=== PATIENT | female | born 1990 | race Caucasian/White ===

== ENCOUNTER → 2019-05-18 | Outpatient (CLI) | payer OTHER ==
[~2019-05-18] MED LIST: BCP'S; CYCL10 PO; DOXY100 PO; HYDACE5 PO; Mirena1 EACH VG; NORETHTP; OXYACE5T PO; Phentermine HCl15 MG; SERT100 PO; SUDAFED 30 MG; SULTRIDS PO
[2019-05-22 15:07] LABS: HPV 16 Negative (Negative); HPV 18 Negative (Negative); HPV OTHER HR TYPES Negative (Negative)
== END | disposition home or self-care (01) ==
LOC: LAB SHORT 17:23 → LAB 17:23
PROVIDERS: Obstetrics & Gynecology
DX: Z01.419 Encounter for gynecological examination (general) (routine) without abnormal findings (principal)
CPT/HCPCS: 87624; G0123

== ENCOUNTER → 2019-12-29 | Outpatient (CLI) | payer OTHER ==
[2019-12-29 11:16] LABS: Progesterone 15.6 ng/mL
== END | disposition home or self-care (01) ==
LOC: LAB SHORT 08:21 → LAB 08:21
PROVIDERS: Obstetrics & Gynecology
DX: N91.2 Amenorrhea, unspecified (principal)
CPT/HCPCS: 84144; 84702

== ENCOUNTER 2020-03-29 19:03 | Emergency (ER) | payer OTHER ==
[~2020-03-29] VITALS: Ht 152.4 cm; Wt 80.7 kg
== END 2020-03-29 21:40 | disposition home or self-care (01) ==
LOC: ER 19:03
DX: O9A.212 Injury, poisoning and certain other consequences of external causes complicating pregnancy, second trimester (principal); S00.83XA Contusion of other part of head, initial encounter; Z88.0 Allergy status to penicillin; Z88.1 Allergy status to other antibiotic agents; Z3A.18 18 weeks gestation of pregnancy; W19.XXXA Unspecified fall, initial encounter
CPT/HCPCS: 76815; 99284-25

== ENCOUNTER → 2020-05-23 | Outpatient (CLI) | payer OTHER | END | disposition home or self-care (01) | LOC: LAB 18:04 → LAB SHORT 18:04 | DX: R30.0 Dysuria (principal) | CPT/HCPCS: 87086 ==

== ENCOUNTER → 2020-08-05 | Outpatient (CLI) | payer OTHER ==
[~2020-08-05] MED LIST changes: +B-100 COMPLEX100 MG PO; +GLYB2.5 PO; +IBUP800; +IRON18 MG PO; +LABE100 PO; +Magnesium500 MG PO; +Percocet 5-3251 EACH; +Vitamin D2000 UNIT PO
== END | disposition home or self-care (01) ==
LOC: LAB SHORT 10:10 → LAB EV 10:10
DX: O26.93 Pregnancy related conditions, unspecified, third trimester (principal)
CPT/HCPCS: 87081; 87653

== ENCOUNTER 2020-08-19 05:56 | Inpatient (IN) | payer OTHER ==
[~2020-08-19] VITALS: Ht 152.4 cm; Wt 85.5 kg
[~2020-08-19 05:56] MED LIST changes: -IBUP800; -Percocet 5-3251 EACH
[2020-08-19 06:38] LABS: BASOPHILS ABSOLUTE AUTO 0.02 K/mm3 (0.00-0.23); BASOPHILS PERCENT AUTO 0 % (0-2); EOSINOPHILS ABSOLUTE AUTO 0.08 K/mm3 (0.00-0.68); EOSINOPHILS PERCENT AUTO 1 % (0-6); Hematocrit 37.7 % (33.0-51.0); Hemoglobin 12.5 g/dL (11.5-16.0); IMMATURE GRAN ABSOLUTE AUTO 0.04 K/mm3 (0.00-0.10); IMMATURE GRAN PERCENT AUTO 0 % (0-1); LYMPHOCYTES ABSOLUTE AUTO 2.17 K/mm3 (0.84-5.20); LYMPHOCYTES PERCENT AUTO 24 % (21-46); MONOCYTES ABSOLUTE AUTO 0.84 K/mm3 (0.16-1.47); MONOCYTES PERCENT AUTO 9 % (4-13); Mean Corpuscular HGB 29.7 pg (26.0-34.0); Mean Corpuscular HGB Conc 33.2 g/dL (31.5-36.5); Mean Corpuscular Volume 90 fL (80-100); Mean Platelet Volume 10.4 fL (9.1-12.4); NEUTROPHILS ABSOLUTE AUTO 6.02 K/mm3 (1.96-9.15); NEUTROPHILS PERCENT AUTO 66 % (41-73); Platelet Count 204 K/mm3 (150-400); RDW Coefficient Variation 14.7 % (11.7-14.2); RDW Standard Deviation 47.7 fL (35.1-46.3); Red Blood Cell Count 4.21 M/mm3 (3.80-5.20); White Blood Cell Count 9.17 K/mm3 (4.00-11.30)
[2020-08-19 22:39] LABS: PO2 Cord - Arterial < 13 mmHg (16-20)
[2020-08-19 22:40] LABS: PCO2 Cord - Arterial 68.5 mmHg (40-50); pH Cord - Arterial 7.23 (7.28-7.35)
[2020-08-19 22:41] LABS: PCO2 Cord - Venous 48.1 mmHg (40-50); PO2 Cord - Venous 25.8 mmHg (28-32); pH Umbilical Cord - Venous 7.32 (7.26-7.35)
--- NOTE | 2020-08-19 22:42 | NUR ---
RT STOOD BY FOR C SECTION. BABY WAS DELIVERED TO WARMER, DRIED AND STIMULATED FOR GOOD CRY, COLOR AND TONE. RT EXCUSED. RN TO CALL IF RT NEEDED.
--- NOTE | 2020-08-20 02:45 | NUR ---
DRESSING SATURATED- REINFORCED BY RN
[2020-08-20 06:50] LABS: BASOPHILS ABSOLUTE AUTO 0.02 K/mm3 (0.00-0.23); BASOPHILS PERCENT AUTO 0 % (0-2); EOSINOPHILS PERCENT AUTO 0 % (0-6); Hematocrit 36.3 % (33.0-51.0); Hemoglobin 11.9 g/dL (11.5-16.0); IMMATURE GRAN ABSOLUTE AUTO 0.05 K/mm3 (0.00-0.10); IMMATURE GRAN PERCENT AUTO 0 % (0-1); LYMPHOCYTES ABSOLUTE AUTO 1.42 K/mm3 (0.84-5.20); LYMPHOCYTES PERCENT AUTO 10 % (21-46); MONOCYTES ABSOLUTE AUTO 0.79 K/mm3 (0.16-1.47); MONOCYTES PERCENT AUTO 6 % (4-13); Mean Corpuscular HGB 29.4 pg (26.0-34.0); Mean Corpuscular HGB Conc 32.8 g/dL (31.5-36.5); Mean Corpuscular Volume 90 fL (80-100); Mean Platelet Volume 10.3 fL (9.1-12.4); NEUTROPHILS ABSOLUTE AUTO 12.15 K/mm3 (1.96-9.15); NEUTROPHILS PERCENT AUTO 84 % (41-73); Platelet Count 199 K/mm3 (150-400); RDW Coefficient Variation 14.5 % (11.7-14.2); RDW Standard Deviation 46.8 fL (35.1-46.3); Red Blood Cell Count 4.05 M/mm3 (3.80-5.20); White Blood Cell Count 14.43 K/mm3 (4.00-11.30)
--- NOTE | 2020-08-20 09:00 | NUR ---
RN ROUNDED TO HELP W/ . INSTRUCT/DEMO WIDENING LATCH, CORRECT POSITIONING, AND NIPPLE SHAPE AFTER FEEDS. NB LATCHED AND IS FEEDING WELL. FURTHER SUPPORT OFFERED IF PT DESIRES.
[2020-08-20] MEDS ORDERED: Percocet 5-3251 EACH ×2 (14:42)
[2020-08-20] MEDS ORDERED: IBUP800 ×2 (14:42)
--- NOTE | 2020-08-20 14:48 | NUR ---
UP VOIDED SMALL AMOUNT OD DRAINAGE FROM LEFT SIDE OF INCISION CONTINUE TO MONITOR
--- NOTE | 2020-08-20 15:06 | NUR ---
PT ALREADY HAS A PORTAL ACCOUNT
== END 2020-08-21 13:22 | disposition home or self-care (01) | DRG 788 ==
LOC: OBS 05:56 → BC 06:04
PROVIDERS: ADMIT Obstetrics & Gynecology
PROC: 10D00Z1 Extraction of Products of Conception, Low, Open Approach (ICD-10-PCS; principal; 2020-08-19 21:30)
DX: O34.211 Maternal care for low transverse scar from previous cesarean delivery (principal); O24.420 Gestational diabetes mellitus in childbirth, diet controlled; O62.1 Secondary uterine inertia; Z3A.38 38 weeks gestation of pregnancy; Z37.0 Single live birth
CPT/HCPCS: 36415; 51702; 82803; 82947; 85025; 86850; 86900; 86901; A9270; J0690; J1885; J2001; J2210; J2405; J2590; J2765; J3010; J7120

== ENCOUNTER 2022-03-29 04:30 | Emergency (ER) | payer OTHER ==
[~2022-03-29] VITALS: Ht 152.4 cm; Wt 77.1 kg
[~2022-03-29 04:30] MED LIST changes: +IBUP800; +Percocet 5-3251 EACH
[2022-03-29 05:14] LABS: BASOPHILS ABSOLUTE AUTO 0.06 K/mm3 (0.00-0.23); BASOPHILS PERCENT AUTO 1 % (0-2); EOSINOPHILS ABSOLUTE AUTO 0.21 K/mm3 (0.00-0.68); EOSINOPHILS PERCENT AUTO 2 % (0-6); Hematocrit 43.4 % (33.0-51.0); Hemoglobin 14.7 g/dL (11.5-16.0); IMMATURE GRAN ABSOLUTE AUTO 0.04 K/mm3 (0.00-0.10); IMMATURE GRAN PERCENT AUTO 0 % (0-1); LYMPHOCYTES ABSOLUTE AUTO 3.12 K/mm3 (0.84-5.20); LYMPHOCYTES PERCENT AUTO 28 % (21-46); MONOCYTES ABSOLUTE AUTO 0.75 K/mm3 (0.16-1.47); MONOCYTES PERCENT AUTO 7 % (4-13); Mean Corpuscular HGB 29.7 pg (26.0-34.0); Mean Corpuscular HGB Conc 33.9 g/dL (31.5-36.5); Mean Corpuscular Volume 88 fL (80-100); Mean Platelet Volume 9.4 fL (9.1-12.4); NEUTROPHILS ABSOLUTE AUTO 7.06 K/mm3 (1.96-9.15); NEUTROPHILS PERCENT AUTO 63 % (41-73); Platelet Count 369 K/mm3 (150-400); RDW Standard Deviation 41.2 fL (35.1-46.3); Red Blood Cell Count 4.95 M/mm3 (3.80-5.20); White Blood Cell Count 11.24 K/mm3 (4.00-11.30)
[2022-03-29 05:35] LABS: Albumin, Blood 4.3 g/dL (3.4-5.0); Albumin/Globulin Ratio 1.1 (0.8-1.8); Bilirubin, Total 0.4 mg/dL (0.1-1.0); Bun/Creatinine Ratio 23.5 (12.0-20.0); Calcium, Blood 9.9 mg/dL (8.5-10.1); Creatinine, Blood 0.64 mg/dL (0.40-1.00); Globulin, Blood 3.8 g/dL (2.2-4.0); Potassium, Blood 3.7 mmol/L (3.5-5.5); Total Protein, Blood 8.1 g/dL (6.4-8.2)
== END 2022-03-29 07:35 | disposition home or self-care (01) ==
LOC: ER 04:30
PROVIDERS: Emergency Medicine
DX: R07.89 Other chest pain (principal); E88.81 Metabolic syndrome and other insulin resistance; Z88.1 Allergy status to other antibiotic agents; Z88.0 Allergy status to penicillin; Z91.09 Other allergy status, other than to drugs and biological substances; Z79.899 Other long term (current) drug therapy
CPT/HCPCS: 36415; 71045; 80053; 83690; 84484; 85025; 85379; 93005; 93010; A9270; J1885

== ENCOUNTER → 2024-09-01 | Outpatient (CLI) | payer OTHER ==
[~2024-09-01] MED LIST changes: +BUPROPION XL150 M1 PO; +BUSPIRONE HCL5 M6 PO; +DOXYCYCLINE HY100 M1 PO
== END ==
LOC: LAB SHORT 18:49 → LAB 18:49
DX: N39.0 Urinary tract infection, site not specified (principal)
CPT/HCPCS: 87077; 87086; 87186

== ENCOUNTER 2025-05-10 12:24 | Day surgery (SDC) | payer OTHER ==
[~2025-05-10] VITALS: Ht 152.4 cm; Wt 73.8 kg
[~2025-05-10 12:24] MED LIST changes: +Bupivacaine 0.5% W/EPI 1:200000 SDV 30 ML Vial ONE
[2025-05-10] MEDS ORDERED: ALLEGRA ALLERG180 MG PO (13:27)
[2025-05-10] MEDS ORDERED: OMEP20ER PO (13:27)
[2025-05-10] MEDS ORDERED: ZYRTEC10 M2 PO (13:28)
[2025-05-10] MEDS ORDERED: Midazolam HCl 1MG / ML 2ML Vial ONE (13:56)
[2025-05-10] MEDS ORDERED: FentaNYL Citrate 50 MCG/ML 2 ML Injection ONE (13:56)
[2025-05-10] MEDS ORDERED: Rocuronium Bromide 10 MG/ML 5ML Injection IV ONE (13:57)
[2025-05-10] MEDS ORDERED: Dexamethasone Sod Phos 10 MG/ML 1ML VIAL ONE (15:04)
[2025-05-10] MEDS ORDERED: Ondansetron HCl 2 MG / ML 2ML Vial ONE ×2 (15:04→15:34)
[2025-05-10] MEDS ORDERED: HYDROmorphone HCl/Pf 1MG SYR ONE (15:04)
[2025-05-10] MEDS ORDERED: Ketorolac Tromethamine 30mg Vial ONE (15:04)
[2025-05-10] MEDS ORDERED: Sugammadex Sodium 200 MG/2ML SDV (100 MG/ML) ONE (15:05)
--- NOTE | 2025-05-10 15:37 | NUR ---
05/10/25 1537 Ashley Garcia DC'Ameya AT END OF CASE. BALLOON INTACT. PT TOLERATED WELL.
[2025-05-10 16:00] VITALS: BP 125/72
--- NOTE | 2025-05-10 16:02 | NUR ---
05/10/25 1602 Windy Nieto 1600 - HANDOFF TO SONDRA RIOS. PT CURRENTLY STATING PAIN 3/10, ACCEPTABLE. NAUSEA IMPROVED. DIZZYNESS IMPROVING, NOW 5/10. PIV FLUIDS OPEN, APPROX 100 REMAINING IN BAG.
--- NOTE | 2025-05-10 16:04 | NUR ---
05/10/25 1604 Windy Nieto PT TO PACU FROM OR, AWAKE, C/O NAUSEA AND DIZZYNESS. ALCOHOL SWAB, ICE PACK PROVIDED, ADMIN 4 MG ZOFRAN IV. FLUIDS ALLOWED TO DRIP IN. EXPERIENCING MILD PAIN, ACCEPTABLE LEVEL. PT REQUESTING PO MULTIPLE TIMES. STABLE FOR TRANSFER TO STE[facility]OWN.
== END 2025-05-10 16:49 | disposition home or self-care (01) ==
LOC: ORSCSDS 12:24
PROVIDERS: Obstetrics & Gynecology
PROC: 0UT74ZZ Resection of Bilateral Fallopian Tubes, Percutaneous Endoscopic Approach (ICD-10-PCS; principal; 2025-05-10 14:00)
DX: Z30.2 Encounter for sterilization (principal); E11.9 Type 2 diabetes mellitus without complications; K21.9 Gastro-esophageal reflux disease without esophagitis; E28.2 Polycystic ovarian syndrome; Z79.899 Other long term (current) drug therapy; E66.9 Obesity, unspecified; Z68.31 Body mass index [BMI] 31.0-31.9, adult
CPT/HCPCS: 82947; 88302; J1100; J1171; J1885; J2250; J2405; J2704; J3010

== ENCOUNTER → 2025-05-31 | Outpatient (CLI) | payer OTHER ==
[~2025-05-31] MED LIST changes: +ALLEGRA ALLERG180 MG PO; -Bupivacaine 0.5% W/EPI 1:200000 SDV 30 ML Vial ONE; +OMEP20ER PO; +ZYRTEC10 M2 PO
[2025-05-31 16:40] LABS: BASOPHILS ABSOLUTE AUTO 0.03 K/mm3 (0.00-0.23); BASOPHILS PERCENT AUTO 0 % (0-2); EOSINOPHILS ABSOLUTE AUTO 0.16 K/mm3 (0.00-0.68); EOSINOPHILS PERCENT AUTO 2 % (0-6); Hematocrit 41.2 % (33.0-51.0); Hemoglobin 14.3 g/dL (11.5-16.0); IMMATURE GRAN ABSOLUTE AUTO 0.01 K/mm3 (0.00-0.10); IMMATURE GRAN PERCENT AUTO 0 % (0-1); LYMPHOCYTES ABSOLUTE AUTO 2.34 K/mm3 (0.84-5.20); LYMPHOCYTES PERCENT AUTO 33 % (21-46); MONOCYTES ABSOLUTE AUTO 0.44 K/mm3 (0.16-1.47); MONOCYTES PERCENT AUTO 6 % (4-13); Mean Corpuscular HGB Conc 34.7 g/dL (31.5-36.5); Mean Corpuscular Volume 88 fL (80-100); NEUTROPHILS ABSOLUTE AUTO 4.13 K/mm3 (1.96-9.15); NEUTROPHILS PERCENT AUTO 58 % (41-73); NRBC ABSOLUTE 0.00 K/mm3 (0.00-0.02); NRBC Auto 0.0 /100 WBC (0.0-0.2); Platelet Count 302 K/mm3 (150-400); RDW Coefficient Variation 12.5 % (11.7-14.2); RDW Standard Deviation 39.8 fL (35.1-46.3)
[2025-05-31 16:53] LABS: Alanine Aminotransfer (ALT/SGP 33.0 U/L (12-78); Albumin, Blood 4.1 g/dL (3.4-5.0); Albumin/Globulin Ratio 1.2 (0.8-1.8); Anion Gap 12.0 mmol/L (3-11); Aspartate Aminotrans (AST/SGOT 19.0 U/L (12-37); Bilirubin, Total 0.6 mg/dL (0.1-1.0); Blood Urea Nitrogen 5.0 mg/dL (8-24); CO2, Blood 29.0 mmol/L (21-32); Calcium, Blood 8.8 mg/dL (8.5-10.1); Chloride, Blood 102.0 mmol/L (98-108); Creatinine, Blood 0.76 mg/dL (0.40-1.00); Globulin, Blood 3.3 g/dL (2.2-4.0); Glucose, Blood 112.0 mg/dL (70-99); Potassium, Blood 3.6 mmol/L (3.5-5.5); Sodium, Blood 139.0 mmol/L (136-145); Total Protein, Blood 7.4 g/dL (6.4-8.2)
== END ==
LOC: LAB SHORT 16:32 → LAB 16:32
PROVIDERS: Physician Assistant
DX: R11.0 Nausea (principal)
CPT/HCPCS: 80053; 85025

== ENCOUNTER → 2025-07-17 | Outpatient (CLI) | payer OTHER | LOC: LAB 14:03 → LAB SHORT 14:03 | DX: N39.0 Urinary tract infection, site not specified (principal) | CPT/HCPCS: 87077; 87086; 87186 ==

== ENCOUNTER → 2025-07-19 | Outpatient (CLI) | payer OTHER ==
[2025-07-19 08:13] LABS: BASOPHILS ABSOLUTE AUTO 0.02 K/mm3 (0.00-0.23); BASOPHILS PERCENT AUTO 0 % (0-2); EOSINOPHILS ABSOLUTE AUTO 0.12 K/mm3 (0.00-0.68); EOSINOPHILS PERCENT AUTO 2 % (0-6); Hematocrit 43.2 % (33.0-51.0); Hemoglobin 14.9 g/dL (11.5-16.0); IMMATURE GRAN ABSOLUTE AUTO 0.02 K/mm3 (0.00-0.10); IMMATURE GRAN PERCENT AUTO 0 % (0-1); LYMPHOCYTES ABSOLUTE AUTO 2.72 K/mm3 (0.84-5.20); LYMPHOCYTES PERCENT AUTO 39 % (21-46); MONOCYTES ABSOLUTE AUTO 0.69 K/mm3 (0.16-1.47); MONOCYTES PERCENT AUTO 10 % (4-13); Mean Corpuscular HGB Conc 34.5 g/dL (31.5-36.5); Mean Corpuscular Volume 88 fL (80-100); NEUTROPHILS ABSOLUTE AUTO 3.33 K/mm3 (1.96-9.15); NEUTROPHILS PERCENT AUTO 48 % (41-73); NRBC ABSOLUTE 0.00 K/mm3 (0.00-0.02); NRBC Auto 0.0 /100 WBC (0.0-0.2); Platelet Count 318 K/mm3 (150-400); RDW Coefficient Variation 12.6 % (11.7-14.2); RDW Standard Deviation 40.6 fL (35.1-46.3)
[2025-07-19 08:24] LABS: Alanine Aminotransfer (ALT/SGP 37.0 U/L (12-78); Albumin, Blood 4.1 g/dL (3.4-5.0); Albumin/Globulin Ratio 1.2 (0.8-1.8); Anion Gap 12.0 mmol/L (3-11); Aspartate Aminotrans (AST/SGOT 19.0 U/L (12-37); Bilirubin, Total 0.6 mg/dL (0.1-1.0); Blood Urea Nitrogen 8.0 mg/dL (8-24); CO2, Blood 27.0 mmol/L (21-32); Calcium, Blood 8.8 mg/dL (8.5-10.1); Chloride, Blood 103.0 mmol/L (98-108); Creatinine, Blood 0.84 mg/dL (0.40-1.00); Globulin, Blood 3.3 g/dL (2.2-4.0); Glucose, Blood 91.0 mg/dL (70-99); Potassium, Blood 4.2 mmol/L (3.5-5.5); Sodium, Blood 138.0 mmol/L (136-145); Total Protein, Blood 7.4 g/dL (6.4-8.2)
== END ==
LOC: LAB 08:08 → LAB SHORT 08:08
PROVIDERS: Emergency Medicine
DX: R11.2 Nausea with vomiting, unspecified (principal)
CPT/HCPCS: 80053; 85025

== ENCOUNTER 2025-07-22 18:08 | Emergency (ER) | payer OTHER ==
[~2025-07-22] VITALS: Ht 152.4 cm; Wt 72.6 kg
[2025-07-22 18:57] LABS: Source, Urine Clean Catch
[2025-07-22 19:04] LABS: Bilirubin, Urine Neg (Neg); Color, Urine Yellow (P-Yellow); Glucose Qualitative, Urine Neg (Neg); Ketones, Urine Neg (Neg); Leukocyte Esterase, Urine Neg (Neg); Protein, Urine 1+ (Neg); Specific Gravity, Urine 1.025 (1.003-1.022); Urobilinogen, Urine NORM (Normal)
[2025-07-22 19:10] LABS: Red Blood Cells, Urine 0-2 /hpf (0-2)
[2025-07-22 19:18] LABS: BASOPHILS ABSOLUTE AUTO 0.04 K/mm3 (0.00-0.23); BASOPHILS PERCENT AUTO 1 % (0-2); EOSINOPHILS ABSOLUTE AUTO 0.16 K/mm3 (0.00-0.68); EOSINOPHILS PERCENT AUTO 2 % (0-6); Hematocrit 40.7 % (33.0-51.0); Hemoglobin 14.1 g/dL (11.5-16.0); IMMATURE GRAN ABSOLUTE AUTO 0.02 K/mm3 (0.00-0.10); IMMATURE GRAN PERCENT AUTO 0 % (0-1); LYMPHOCYTES ABSOLUTE AUTO 2.88 K/mm3 (0.84-5.20); LYMPHOCYTES PERCENT AUTO 36 % (21-46); MONOCYTES ABSOLUTE AUTO 0.73 K/mm3 (0.16-1.47); MONOCYTES PERCENT AUTO 9 % (4-13); Mean Corpuscular HGB Conc 34.6 g/dL (31.5-36.5); Mean Corpuscular Volume 88 fL (80-100); NEUTROPHILS ABSOLUTE AUTO 4.16 K/mm3 (1.96-9.15); NEUTROPHILS PERCENT AUTO 52 % (41-73); NRBC ABSOLUTE 0.00 K/mm3 (0.00-0.02); NRBC Auto 0.0 /100 WBC (0.0-0.2); Platelet Count 320 K/mm3 (150-400); RDW Coefficient Variation 12.3 % (11.7-14.2); RDW Standard Deviation 39.7 fL (35.1-46.3)
[2025-07-22 19:34] LABS: Alanine Aminotransfer (ALT/SGP 33.0 U/L (12-78); Albumin, Blood 4.1 g/dL (3.4-5.0); Albumin/Globulin Ratio 1.2 (0.8-1.8); Anion Gap 8.0 mmol/L (3-11); Aspartate Aminotrans (AST/SGOT 18.0 U/L (12-37); Bilirubin, Total 0.2 mg/dL (0.1-1.0); Blood Urea Nitrogen 12.0 mg/dL (8-24); CO2, Blood 26.0 mmol/L (21-32); Calcium, Blood 8.5 mg/dL (8.5-10.1); Chloride, Blood 106.0 mmol/L (98-108); Creatinine, Blood 0.81 mg/dL (0.40-1.00); Globulin, Blood 3.4 g/dL (2.2-4.0); Glucose, Blood 113.0 mg/dL (70-99); Potassium, Blood 3.7 mmol/L (3.5-5.5); Sodium, Blood 136.0 mmol/L (136-145); Total Protein, Blood 7.5 g/dL (6.4-8.2)
[2025-07-22 20:27] VITALS: BP 124/81
== END 2025-07-22 21:45 | disposition home or self-care (01) ==
LOC: ER 18:08
PROVIDERS: Student in an Organized Health Care Education/Training Program
DX: R10.30 Lower abdominal pain, unspecified (principal); Z87.440 Personal history of urinary (tract) infections; Z90.79 Acquired absence of other genital organ(s); Z88.0 Allergy status to penicillin; Z88.1 Allergy status to other antibiotic agents; Z91.048 Other nonmedicinal substance allergy status; Z79.899 Other long term (current) drug therapy
CPT/HCPCS: 74176; 80053; 81001; 83690; 85025; 99284-25

== ENCOUNTER → 2025-08-20 | Outpatient (CLI) | payer OTHER ==
[2025-08-20 16:17] LABS: BASOPHILS ABSOLUTE AUTO 0.04 K/mm3 (0.00-0.23); BASOPHILS PERCENT AUTO 0 % (0-2); EOSINOPHILS ABSOLUTE AUTO 0.10 K/mm3 (0.00-0.68); EOSINOPHILS PERCENT AUTO 1 % (0-6); Hematocrit 43.8 % (33.0-51.0); Hemoglobin 15.4 g/dL (11.5-16.0); IMMATURE GRAN ABSOLUTE AUTO 0.03 K/mm3 (0.00-0.10); IMMATURE GRAN PERCENT AUTO 0 % (0-1); LYMPHOCYTES ABSOLUTE AUTO 2.59 K/mm3 (0.84-5.20); LYMPHOCYTES PERCENT AUTO 27 % (21-46); MONOCYTES ABSOLUTE AUTO 0.79 K/mm3 (0.16-1.47); MONOCYTES PERCENT AUTO 8 % (4-13); Mean Corpuscular HGB Conc 35.2 g/dL (31.5-36.5); Mean Corpuscular Volume 87 fL (80-100); NEUTROPHILS ABSOLUTE AUTO 5.90 K/mm3 (1.96-9.15); NEUTROPHILS PERCENT AUTO 62 % (41-73); NRBC ABSOLUTE 0.00 K/mm3 (0.00-0.02); NRBC Auto 0.0 /100 WBC (0.0-0.2); Platelet Count 372 K/mm3 (150-400); RDW Coefficient Variation 12.4 % (11.7-14.2); RDW Standard Deviation 39.0 fL (35.1-46.3)
[2025-08-20 16:30] LABS: Alanine Aminotransfer (ALT/SGP 34.0 U/L (12-78); Albumin, Blood 4.3 g/dL (3.4-5.0); Albumin/Globulin Ratio 1.1 (0.8-1.8); Anion Gap 12.0 mmol/L (3-11); Aspartate Aminotrans (AST/SGOT 22.0 U/L (12-37); Bilirubin, Total 0.4 mg/dL (0.1-1.0); Blood Urea Nitrogen 11.0 mg/dL (8-24); CO2, Blood 28.0 mmol/L (21-32); Calcium, Blood 9.6 mg/dL (8.5-10.1); Chloride, Blood 101.0 mmol/L (98-108); Creatinine, Blood 0.7 mg/dL (0.40-1.00); Globulin, Blood 3.8 g/dL (2.2-4.0); Glucose, Blood 102.0 mg/dL (70-99); Magnesium, Blood 2.2 mg/dL (1.6-2.4); Potassium, Blood 4.1 mmol/L (3.5-5.5); Sodium, Blood 137.0 mmol/L (136-145); Total Protein, Blood 8.1 g/dL (6.4-8.2)
== END ==
LOC: LAB 16:14 → LAB SHORT 16:14
PROVIDERS: Physician Assistant Medical
DX: R53.83 Other fatigue (principal)
CPT/HCPCS: 80053; 83735; 85025